=== PATIENT | female | born 1970 | race Caucasian/White ===

== ENCOUNTER 2018-09-29 11:22 | Day surgery (SDC) | payer OTHER ==
[2018-09-29] MEDS: LACTATED RINGER'S 1,000 ML IV (12:10)
[2018-09-29] MEDS ORDERED: MIDAZOLAM 1 MG/ML 2 ML INJ (13:31)
[2018-09-29] MEDS ORDERED: FENTAnyl 50 MCG/ML VIAL (13:32)
[2018-09-29] MEDS ORDERED: LIDOCAINE 2% (SDV) 5 ML INJ (14:29)
[2018-09-29] MEDS ORDERED: ONDANSETRON 4 MG INJ (14:29)
[2018-09-29] MEDS ORDERED: PROPOFOL 20 ML (14:29)
[2018-09-29] MEDS ORDERED: CEFAZOLIN 1 GM INJ (14:29)
[2018-09-29] MEDS ORDERED: MEPERIDINE 25 MG INJ IV (15:00)
[2018-09-29] MEDS ORDERED: METOCLOPRAMIDE 10 MG INJ IV (15:00)
[2018-09-29] MEDS ORDERED: ONDANSETRON 4 MG INJ IV (15:00)
[2018-09-29] MEDS ORDERED: HYDROmorphONE 1 MG/5 ML IV SYRINGE IV ×2 (15:00)
[2018-09-29] MEDS ORDERED: FENTAnyl 50 MCG/ML VIAL IV (15:00)
[2018-09-29] MEDS ORDERED: KETOROLAC 30 MG INJ IV (15:00)
[2018-09-29] MEDS ORDERED: DIPHENHYDRAMINE 50 MG INJ IV (15:00)
== END 2018-09-29 16:15 | disposition home or self-care (01) ==
LOC: SDS 11:22
DX: N92.1 Excessive and frequent menstruation with irregular cycle (principal)
CPT/HCPCS: 58558; 82962; 84703; 88305